=== PATIENT | female | born 1980 | race Hispanic/Latino ===

== ENCOUNTER 2019-07-10 08:02 | Emergency (ER) | payer BC ==
[2019-07-10 08:36] LABS: BHCG - Serum Negative (NEGATIVE); Pregs Control Background? CLEAR/WHITE (CLR/WHITE); Pregs Control Bar Appear? YES (CONTROL BAR)
[2019-07-10 08:42] LABS: #Basophils 0.1 thou/uL (0.0-0.2); #Eosinphils 0.1 thou/uL (0.0-0.7); #Monocytes 0.3 thou/uL (0.11-0.59); #Neutrophils 3.7 thou/uL (1.40-6.50); %Basophils 0.8 % (0.0-1.0); %Lymphocytes 32.6 % (21.0-51.0); %Monocytes 5.2 % (0.0-10.0); %Neutrophils 59.4 % (42.0-75.0); Hemoglobin 13.9 g/dL (12.0-16.0); Mean Corpuscular HGB CONC 33.9 g/dL (32.0-36.0); Mean Corpuscular Hemoglobin 30.4 pg (27.0-31.0); Mean Corpuscular Volume 89.6 fL (78.0-98.0); Mean Platelet Volume 7.3 fL (7.4-10.4); Platelet Count 318 thou/uL (130-400); RBC Distribution Width 11.3 % (11.5-14.5); Red Blood Cell (RBC) Count 4.59 mill/uL (4.20-5.40); White Blood Cell (WBC) Count 6.2 thou/uL (4.8-10.8)
[2019-07-10 08:49] LABS: ALT (SGPT) 14 U/L (8-55); AST (SGOT) 14 U/L (5-34); Albumin 4.6 g/dL (3.5-5.0); Alkaline Phosphatase 79 U/L (40-150); Anion Gap 10 mmol/L (10-20); BUN (Urea Nitrogen) 12 mg/dL (7.0-18.7); Bilirubin, Total 0.3 mg/dL (0.2-1.2); Calc. Creatinine Clearance 0 mL/min (70-130); Calcium 9.3 mg/dL (7.8-10.44); Carbon Dioxide 23 mmol/L (22-29); Chloride 108 mmol/L (98-107); Estimated GFR-MDRD Greater than 90; Globulin 2.7 g/dL (2.4-3.5); Glucose 111 mg/dL (70-105); Lipase 19 U/L (8-78); Potassium 4.1 mmol/L (3.5-5.1); Protein, Total 7.3 g/dL (6.0-8.3); Sodium 137 mmol/L (136-145)
[2019-07-10 09:05] LABS: Bilirubin Negative (Negative); Blood, Urine Negative (Negative); Clarity Clear (Clear); Glucose, Urine (Dipstick) Normal (Negative); Leukocyte Negative Leu/uL (Negative); Nitrite Negative (Negative); Protein, Urine (Dipstick) Negative (Neg-Trace); Urobilinogen Normal mg/dL (Less than 2)
[2019-07-10] MEDS ORDERED: Ondansetron PF 4 MG/2 ML Vial ONE (09:20)
[2019-07-10] MEDS ORDERED: Morphine 4 MG/ML VIAL ONE (09:20)
--- NOTE | 2019-07-10 09:57 | ULT ---
ULTRASOUND PELVIC ULTRASOUND TRANSVAGINAL DOPPLER DUPLEX: DATE: 07/10/2019 HISTORY: 39-year-old female with right pelvic pain. Rule out ovarian torsion. Patient has had no menstruation since prior uterine ablation. TECHNIQUE: Transabdominal transducer and endovaginal transducer used to visualize intrapelvic contents with draper scale, color-flow, and spectral analysis. FINDINGS: Uterus: 8.5 x 3.5 x 6 cm. A 1.5 x 1 x 1 cm smoothly circumscribed subserosal hypoechoic solid mass slightly exophytically protr udes from the right anterior surface of the uterine body. Presumably a uterine fibroid (leiomyoma). Endometrial stripe: 0.9 cm (9 mm) with lobular margins. Tiny 0.3 x 0.2 x 0.2 cm hypoechoic focus (calcification?) Within the endometrial stripe. Multiple nabothian cysts. Right ovary: 2.3 x 2.2 x 1.7 cm. Left ovary: 1.8 x 2.3 x 1.2 cm. Blood flow demonstrated in both ovaries by Doppler. No evidence of ovarian cyst. No free fluid in the cul-de-sac. IMPRESSION: 1) no convincing evidence of ovarian torsion. 2) thickened endometrial stripe with lobular margins. 3) possible tiny focal calcification within endometrial stripe. 4) 1.5 cm subserosal uterine mass, presumably uterine fibroid.
[2019-07-10] MEDS ORDERED: Mag-Al 1200 mg/1200 mg/30 ML UDCUP ONE (10:31)
[2019-07-10] MEDS ORDERED: Lidocaine Viscous Sol 2% 15 ml UD Cup ONE (10:31)
--- NOTE | 2019-07-10 11:07 | CT ---
CT ABDOMEN WITH CONTRAST CT PELVIS WITH CONTRAST: DATE: 07/10/2019 HISTORY: 39-year-old female with right lower quadrant abdominal pain. TECHNIQUE: 39-year-old female with right lower quadrant abdominal pain IV injection of iodinated contrast media: Administered Oral contrast media:Not administered. FINDINGS: Liver: No focal solid mass. Spleen: No splenomegaly.. Pancreas: No mass or surrounding fat stranding.. Adrenals: No mass.. Kidneys: No hydronephrosis or enhancement abnormalities.. Ureters: No dilation. Bladder: Normal wall thickness. Tiny bubble of gas in the nondependent portion of lumen, presumably f rom recent catheterization. Abdominal aorta: No aneurysm. Small bowel: No dilation. Colon: No adjacent fat stranding. Appendix: No dilation or adjacent fat stranding.. Free air: None. Free fluid: None. IMPRESSION: 1. No major pathology identified.. 2. Normal appendix. 3. Status post cholecystectomy.
== END 2019-07-10 12:21 | disposition home or self-care (01) ==
LOC: ERS 08:02
DX: R10.31 Right lower quadrant pain (principal)
CPT/HCPCS: 36415; 74177; 76856; 80053; 81003; 83605; 83690; 84703; 85025; 87086; 93005; 94760; 96361; 96374; 96375; J2270; J2405

== ENCOUNTER 2019-09-23 06:12 | Outpatient (CLI) | payer BC ==
[2019-09-23 17:18] LABS: Hemoglobin 12.9 g/dL (12.0-16.0); Mean Corpuscular HGB CONC 34.4 g/dL (32.0-36.0); Mean Corpuscular Hemoglobin 30.9 pg (27.0-31.0); Mean Corpuscular Volume 89.6 fL (78.0-98.0); Mean Platelet Volume 6.9 fL (7.4-10.4); Platelet Count 308 thou/uL (130-400); RBC Distribution Width 11.4 % (11.5-14.5); Red Blood Cell (RBC) Count 4.19 mill/uL (4.20-5.40)
[2019-09-23 17:31] LABS: BHCG - Serum Negative (NEGATIVE); Pregs Control Background? CLEAR/WHITE (CLR/WHITE); Pregs Control Bar Appear? YES (CONTROL BAR)
== END 2019-09-23 06:13 | disposition home or self-care (01) ==
LOC: LABBT 06:12
PROVIDERS: ATTEND Obstetrics & Gynecology
DX: Z01.812 Encounter for preprocedural laboratory examination (principal); N99.85 Post endometrial ablation syndrome; R10.2 Pelvic and perineal pain; N94.10 Unspecified dyspareunia
CPT/HCPCS: 84703; 85027; 86850; 86870; 86900; 86901

== ENCOUNTER 2019-09-29 05:45 | Day surgery (SDC) | payer BC ==
[2019-09-23 16:55] VITALS: BMI 32.8
--- NOTE | 2019-09-28 07:34 | HP ---
REASON FOR ADMISSION: Pelvic pain post ablation syndrome. SCHEDULED PROCEDURE: Total laparoscopic hysterectomy and bilateral salpingectomy. HISTORY OF PRESENT ILLNESS: She is a G2, P2, status post endometrial ablation, who presents with dyspareunia and pelvic pain. Ultrasound reveals a lobular endometrium with calcified uterine fibroid. She desires definitive surgical management. 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 No history of dysplasia. PAST MEDICAL HISTORY: Denies. PAST SURGICAL HISTORY: Cholecystectomy, breast biopsy, and endometrial ablation. ALLERGIES: ASPIRIN. MEDICATIONS: Adderall. SOCIAL HISTORY: Denies tobacco, alcohol, or IV drug abuse. FAMILY HISTORY: Noncontributory. REVIEW OF SYSTEMS: Noncontributory. PHYSICAL EXAMINATION: VITAL SIGNS: female, 5 feet 1 inch, weight 171 pounds, BMI 32, blood pressure 110/68, pulse 83, respirations 18. HEENT: Within normal limits. LUNGS: Clear to auscultation bilaterally. HEART: Regular rhythm. ABDOMEN: Soft and nontender without rebound or guarding. Vulva without lesions. Vagina without discharge. Cervix, parous. Uterus anteverted, mildly enlarged, and tender as well as tender right fallopian tube. No adnexal masses noted. EXTREMITIES: Without clubbing, cyanosis, or edema. IMPRESSION: Post endometrial ablation syndrome with dyspareunia and uterine fibroid noted on ultrasound. PLAN: Total laparoscopic hysterectomy, bilateral salpingectomy. The patient understands risks and benefits of procedure. Administer appropriate antibiotic and DVT prophylaxis. Job ID: [id number]
[2019-09-29] MEDS ORDERED: Famotidine/PF 20 mg/2ml Vial ONE (06:12)
[2019-09-29] MEDS ORDERED: Gabapentin 300 MG CAP ONE (06:12)
[2019-09-29] MEDS ORDERED: Bupivacaine PF 0.5% 30 ML VIAL ONE (06:41)
[2019-09-29] MEDS ORDERED: Lidocaine 1% w/Epinephrine 1:100K 20 ML VIAL ONE (06:41)
[2019-09-29] MEDS ORDERED: Fentanyl 100 MCG/2 ML VIAL ONE ×2 (06:48→09:24)
[2019-09-29] MEDS ORDERED: HYDROmorphone 2 MG/ML VIAL ONE (06:48)
[2019-09-29] MEDS ORDERED: Ketamine 50 MG/ML (10ML VIAL) ONE (06:49)
[2019-09-29] MEDS ORDERED: Midazolam HCl 2 mg/2 ml Vial ONE (07:19)
[2019-09-29] MEDS ORDERED: Ondansetron HCl/PF 4 MG/2 ML Vial IVP PRN (09:29)
[2019-09-29] MEDS ORDERED: Promethazine HCl 25 MG/ML VIAL SLOW IVP PRN (09:29)
[2019-09-29] MEDS ORDERED: Promethazine HCl 25 MG/ML VIAL IM PRN ×2 (09:29→09:43)
[2019-09-29] MEDS ORDERED: traMADol HCl 50 MG TAB PO PRN ×2 (09:43)
[2019-09-29] MEDS ORDERED: Bisacodyl 10 MG SUPP PR PRN (09:43)
[2019-09-29] MEDS ORDERED: Simethicone Chewable 80 MG TAB PO PRN (09:43)
[2019-09-29] MEDS ORDERED: Ondansetron PF 4 MG/2 ML Vial IVP PRN (09:43)
[2019-09-29] MEDS ORDERED: diphenhydrAMINE 25 MG CAP PO PRN (09:43)
[2019-09-29] MEDS ORDERED: Morphine 4 MG/ML VIAL SLOW IVP PRN (09:43)
[2019-09-29] MEDS ORDERED: Zolpidem Tartrate 5 MG TAB PO PRN (09:43)
--- NOTE | 2019-09-29 11:36 | OP ---
DATE OF PROCEDURE: 09/29/2019 PREOPERATIVE DIAGNOSIS: Chronic pelvic pain, post ablation syndrome. POSTOPERATIVE DIAGNOSES: Chronic pelvic pain, post ablation syndrome plus right distal fallopian tube torsion. PROCEDURE PERFORMED: Total laparoscopic hysterectomy, bilateral salpingectomy. AUTOMATIC HEMMER: Ilda Bella PA-C ANESTHESIA: General endotracheal. ESTIMATED BLOOD LOSS: Approximately 100 mL. DRAINS: Hays to gravity. MEDICATIONS: 2 g Ancef preincision. DVT PROPHYLAXIS: SCDs. OPERATIVE FINDINGS: 1. Approximately 3-to 4-cm diameter torsion with hemorrhage of distal right fallopian tube. 2. Normal-appearing tubes and ovaries bilaterally, exclusive of the torsion. 3. Uterus consistent with post ablation. 4. Hemostasis, clear urine. COUNTS: Correct at the end of the procedure. DISPOSITION: Recovery in good condition. DESCRIPTION OF PROCEDURE: After obtaining appropriate informed consent, the patient was taken to the operating room. General endotracheal anesthesia was achieved without difficulty. The patient was prepped and draped in dorsal lithotomy in Morgan stirrups. Sliding speculum was placed in vagina. Cervix was identified and grasped with single-tooth tenaculum. Uterus sounded 8 cm. An 8-cm obturator and a 4-cm vaginal automotive sales professional was placed without difficulty and a Hays catheter was placed. Joy Loader changes gloves, turned attention to abdominal portion of procedure. 5 mL of Marcaine injected. The superior aspect of the umbilicus, and a 12-mm skin incision was made. A Veress needle was placed inside the abdominal cavity. Insufflation was carried out with carbon dioxide for a maximum pressure of 15, volume approximately 3 L. A 12-mm trocar was placed after reaching a pressure of 15 and findings as noted in the operative findings were noted. Right and left lateral da Lydia ports were placed lateral to the epigastric vessels. An retail sales assistant port 11 mm in the right upper quadrant. Da Lydia robot was docked with monopolar scissors in the right hand and bipolar fenestrated forceps in the left. Torsion of the distal right fallopian tube was noted and the mesosalpinx was coagulated and excised and placed in the cul-de-sac for retrieval. The utero-ovarian ligament on the patient's right was coagulated and transected, the round, the broad and down the level of internal cervical os. Vesicouterine peritoneum was incised sharply anteriorly and dissected off the cervix and upper vagina. Skeletonization of the uterine vessels carried on the right and these were coagulated and transected. Attention was turned to the left side. The fallopian tube was grasped at its distal end in the mesosalpinx, coagulated, transected, excised and removed and sent for pathologic analysis. The utero-ovarian was then coagulated and transected. The broad, the round, and down to the level of the internal cervical os. Skeletonization of the uterine vessels on the left was carried out and these were transected and good hemostasis was noted. Anteriorly, the vagina was entered at 12 o'clock and extended from 12 o'clock to 9 o'clock , and 12 o'clock to 3 o'clock and then posteriorly from 6 o'clock to 3 o'clock and 6 o'clock to 9 o'clock, amputating the specimen was pulled out of the vagina to maintain pneumoperitoneum. The distal right fallopian tube that was excised with torsion was pulled into the vagina as well. Suction irrigation was carried out and the pedicles were all noted to be dry. The vagina was closed using a running continuous 2-0 0 PDS and Stratafix suture from right to left and then back to right in a 2-layer manner. Suction irrigation was carried out. Good hemostasis was noted throughout. Tisseel was applied across all surgical pedicles. Ureter was never able to be definitively identified on the right secondary to inflammation associated with the torsion of the distal fallopian tube. It was felt to be well lateral to the operative field. Ureter was identified on the left and noted to be well lateral to the operative field. Da Lydia instruments were removed. Da Lydia robot undocked. The abdomen was desufflated of carbon dioxide. Trocars removed x4. Fascia reapproximated the umbilicus using 0 Vicryl on a UR6 needle. Skin reapproximated x4 using 4-0 Monocryl and Dermabond. Vagina was sponged and noted to be dry. The specimen was sent for pathology. The patient was awakened, extubated, taken to the recovery room in good condition. Job ID: [id number]
[2019-09-29] MEDS: Acetaminophen 1,000 MG in Premix Bag 1 BAG IVPB SCH ×2 (12:17→18:54)
[2019-09-29] MEDS: Sodium Chloride 0.9% 1,000 ML IV SCH ×2 (12:19→18:57)
[2019-09-29] MEDS ORDERED: PROPOFOL 200 MG/20 ML VIAL ONE (15:17)
[2019-09-29] MEDS ORDERED: Ondansetron PF 4 MG/2 ML Vial ONE (15:17)
[2019-09-29] MEDS ORDERED: Rocuronium Bromide 10 MG/ML (10ML VIAL) ONE (15:17)
[2019-09-29] MEDS ORDERED: Glycopyrrolate 0.2 MG/ML 5 ML SYRINGE ONE (15:17)
[2019-09-29] MEDS ORDERED: Dexamethasone 20 MG/5 ML VIAL ONE (15:17)
[2019-09-29] MEDS ORDERED: PHENYLEPHRINE-NS 100 MCG/ML 10 ML SYRINGE ONE (15:17)
[2019-09-29] MEDS ORDERED: Lidocaine 1% PF 5 ML VIAL ONE (15:17)
[2019-09-29] MEDS ORDERED: Gabapentin 300 MG CAP PO SCH (16:00)
[2019-09-30] MEDS: Acetaminophen 1,000 MG in Premix Bag 1 BAG IVPB SCH (00:01)
[2019-09-30] MEDS: Sodium Chloride 0.9% 1,000 ML IV SCH (00:08)
[2019-09-30 00:26] VITALS: BP 101/62; TEMP 98.4
[2019-09-30] MEDS ORDERED: DEXTROAMPHETAMINE PO SCH (09:00)
[2019-09-30] MEDS ORDERED: AMPHETAMINE PO SCH (09:00)
--- NOTE | 2019-09-30 11:41 | DIS ---
DATE OF ADMISSION: 09/29/2019 DATE OF DISCHARGE: 09/30/2019 SUMMARY OF HOSPITAL COURSE: Ms. Collazo underwent a TLH, bilateral salpingectomy on 09/29. She had an unremarkable postoperative course, is voiding well, stable vital signs and tolerating p.o. PHYSICAL EXAMINATION: VITAL SIGNS: Stable. LUNGS: Clear to auscultation bilaterally. HEART: Regular rate and rhythm. ABDOMEN: Soft and nontender. Perineum is dry. EXTREMITIES: No clubbing, cyanosis, or edema. IMPRESSION: Doing well, status post total laparoscopic hysterectomy with bilateral salpingectomy. PLAN: Discharge home. Keep scheduled followup at [facility]. The patient has discharge medications sent out preoperatively. Job ID: [id number]
[2019-09-30 13:43] LABS: Mean Corpuscular HGB CONC 32.9 g/dL (32.0-36.0); Mean Corpuscular Hemoglobin 30.4 pg (27.0-31.0); Mean Corpuscular Volume 92.4 fL (78.0-98.0); Mean Platelet Volume 7.6 fL (7.4-10.4); Platelet Count 285 thou/uL (130-400); RBC Distribution Width 11.5 % (11.5-14.5); Red Blood Cell (RBC) Count 3.62 mill/uL (4.20-5.40)
== END 2019-09-30 10:19 | disposition home or self-care (01) ==
LOC: SDC 05:45 → 3SE 09:11 → SDC 09-30 10:19
PROVIDERS: ATTEND Obstetrics & Gynecology
PROC: 0UT74ZZ Resection of Bilateral Fallopian Tubes, Percutaneous Endoscopic Approach (ICD-10-PCS; principal; 2019-09-30)
PROC: 0UT94ZZ Resection of Uterus, Percutaneous Endoscopic Approach (ICD-10-PCS; principal; 2019-09-30)
DX: D25.9 Leiomyoma of uterus, unspecified (principal); N99.85 Post endometrial ablation syndrome; N83.521 Torsion of right fallopian tube; G89.29 Other chronic pain; R10.2 Pelvic and perineal pain; Z88.8 Allergy status to other drugs, medicaments and biological substances; Z91.018 Allergy to other foods
CPT/HCPCS: 36415; 85027; 86850; 86900; 86901; 88307; J0131; J0690; J1100; J1170; J2001; J2250; J2405; J2704; J3010; S0020; S0028

== ENCOUNTER 2021-02-09 13:14 | Outpatient (CLI) | payer BC | END 2021-02-09 13:15 | disposition home or self-care (01) | LOC: BICULT 13:14 | PROVIDERS: ATTEND Internal Medicine Hospice and Palliative Medicine | DX: E04.9 Nontoxic goiter, unspecified (principal) | CPT/HCPCS: 76536 ==

== ENCOUNTER 2024-05-12 12:16 | Outpatient (CLI) | payer BC | END 2024-05-12 12:17 | disposition home or self-care (01) | LOC: BICMAMMO 12:16 | PROVIDERS: ATTEND Internal Medicine Hospice and Palliative Medicine | DX: Z12.31 Encounter for screening mammogram for malignant neoplasm of breast (principal); Z80.3 Family history of malignant neoplasm of breast; Z91.89 Other specified personal risk factors, not elsewhere classified | CPT/HCPCS: 77063; 77067 ==

== ENCOUNTER 2024-08-24 14:07 | Outpatient (CLI) | payer BC | END 2024-08-24 14:08 | disposition home or self-care (01) | LOC: BICMAMMO 14:07 | PROVIDERS: ATTEND Family Medicine | DX: Z78.0 Asymptomatic menopausal state (principal); M85.859 Other specified disorders of bone density and structure, unspecified thigh | CPT/HCPCS: 77080 ==